=== PATIENT | male | born 1955 | race Caucasian/White ===

== ENCOUNTER 2024-09-21 10:13 | Outpatient (CLI) | payer MEDICARE, OTHER, MEDICAID ==
[~2024-09-21] VITALS: Ht 177.8 cm; Wt 111.1 kg
[2024-09-21 11:30] LABS: BASOPHILS # (AUTO) 0.1 X10'3 (0-0.2); MONOCYTES # (AUTO) 0.9 X10'3 (0-0.9)
[2024-09-21] MEDS ORDERED: FLO0.4C PO (11:30)
[2024-09-21] MEDS ORDERED: LAXATIVE PO (11:30)
[2024-09-21] MEDS ORDERED: FINA5TAB11 (11:30)
[2024-09-21] MEDS ORDERED: HYDR-3964 PO (11:30)
[2024-09-21] MEDS ORDERED: ALLERGY RELIEF PO (11:30)
[2024-09-21] MEDS ORDERED: ERGO500056 PO (11:30)
[2024-09-21] MEDS ORDERED: LOSA25TA41 PO (11:30)
[2024-09-21] MEDS ORDERED: ATOR20TA66 PO (11:30)
[2024-09-21] MEDS ORDERED: IBUP-1986 PO (11:30)
[2024-09-21] MEDS ORDERED: AMLO2.5T5 PO (11:30)
[2024-09-21] MEDS ORDERED: ASPI81TA52 PO (11:30)
[2024-09-21] MEDS ORDERED: EMPA10TA PO (11:30)
[2024-09-21 11:31] LABS: BASOPHILS % (AUTO) 1.1 % (0-1); EOSINOPHILS # (AUTO) 0.4 X10'3 (0-0.9); EOSINOPHILS % (AUTO) 3.3 % (0-6); LYMPHOCYTES # (AUTO) 3.1 X10'3 (1.1-4.8); LYMPHOCYTES % (AUTO) 27.6 % (21-51); MEAN CORPUSCULAR HEMOGLOBIN 28.2 PG (27.0-31.0); MEAN CORPUSCULAR HGB CONC 32.2 g/dL (33.0-36.5); MEAN CORPUSCULAR VOLUME 87.5 FL (78-98); MEAN PLATELET VOLUME 8.3 FL (7.4-10.4); MONOCYTES % (AUTO) 8.2 % (2-12); NEUTROPHILS # (AUTO) 6.7 X10'3 (1.8-7.7); NEUTROPHILS % (AUTO) 59.8 % (42-75); PRE OP HEMATOCRIT 51.7 % (42.0-52.0); PRE OP HEMOGLOBIN 16.7 g/dL (14.0-17.9); PRE OP PLATELET COUNT 234 X10'3 (140-440); PRE OP WHITE BLOOD COUNT 11.2 10'3 (4.8-10.8); RED BLOOD COUNT 5.91 X10'6 (4.70-6.10); RED CELL DISTRIBUTION WIDTH 14.3 % (11.5-14.5)
[2024-09-21 11:32] LABS: BILIRUBIN,URINE NEGATIVE (Neg); CLARITY,URINE CLEAR (Clear); COLOR,URINE YELLOW (Yellow); GLUCOSE, URINE >=1000 mg/dl (Neg); KETONES,URINE NEGATIVE (Neg); LEUKOCYTE ESTERASE ,URINE NEGATIVE (Neg); NITRITES, URINE NEGATIVE (Neg); OCCULT BLOOD,URINE NEGATIVE (Neg); PROTEIN,URINE NEGATIVE (Neg); UROBILINOGEN,URINE 0.2 E.U/dL (0.2-1.0)
[2024-09-21 11:36] LABS: UA COLLECTION TYPE CLN CATCH MIDSTREAM
[2024-09-21 11:38] LABS: BACTERIA,URINE NONE SEEN /HPF (Neg); MUCUS STRANDS NONE SEEN /LPF (Neg); RBC,URINE NONE SEEN /HPF (0-2); SQUAMOUS EPITHELIAL CELL,UR FEW /LPF (FEW); WBC,URINE NONE SEEN /HPF (0-4)
[2024-09-21 12:27] LABS: ALKALINE PHOSPHATASE 109 IU/L (46-116); BLOOD UREA NITROGEN 21 MG/DL (7-18); BUN/CREATININE RATIO 18.6 (10.0-20.0); CALCIUM 9.2 MG/DL (8.5-10.1); CHLORIDE 105 MMOL/L (99-107); CREATININE 1.13 MG/DL (0.60-1.10); PRE OP ALT 42 U/L (30-65); PRE OP ANION GAP 10 (8-16); PRE OP AST 19 U/L (10-37); PRE OP GLUCOSE 100 MG/DL (70-104); PRE OP POTASSIUM 4.2 MMOL/L (3.4-5.1); PRE OP SODIUM 142 MMOL/L (135-145); TOTAL CARBON DIOXIDE 27.3 MMOL/L (24-32); eGFR 64 ML/MIN
[2024-09-30] MEDS ORDERED: ceFAZolin 2gm in dextrose, iso 50 ML IV ONE (05:30)
[2024-09-30] MEDS ORDERED: ringers solution, lacted 1,000 ML IV SCH (05:30)
[2024-09-30] MEDS ORDERED: famotidine 20mg tablet PO ONE (05:30)
== END 2024-09-21 23:59 | disposition home or self-care (01) ==
LOC: LAB 10:13 → EDSTATUS 11-25 09:45
PROVIDERS: ATTEND Podiatrist Foot & Ankle Surgery
DX: Z01.818 Encounter for other preprocedural examination (principal); M79.671 Pain in right foot; M76.62 Achilles tendinitis, left leg; M21.6X2 Other acquired deformities of left foot; M79.672 Pain in left foot
CPT/HCPCS: 71046; 80053; 81001; 85025; J0690; J7120

== ENCOUNTER 2024-11-25 05:17 | Day surgery (SDC) | payer MEDICARE, MEDICAID ==
[2024-11-16 13:47] LABS: BILIRUBIN,URINE NEGATIVE (Neg); CLARITY,URINE CLEAR (Clear); COLOR,URINE YELLOW (Yellow); GLUCOSE, URINE NEGATIVE (Neg); KETONES,URINE NEGATIVE (Neg); LEUKOCYTE ESTERASE ,URINE NEGATIVE (Neg); NITRITES, URINE NEGATIVE (Neg); OCCULT BLOOD,URINE NEGATIVE (Neg); PH,URINE 5.5 (4.8-8.0); PROTEIN,URINE NEGATIVE (Neg); UROBILINOGEN,URINE 0.2 E.U/dL (0.2-1.0)
[2024-11-16 13:48] LABS: UA COLLECTION TYPE NON-SPECIFIED
[2024-11-16 13:57] LABS: BASOPHILS # (AUTO) 0.1 X10'3 (0-0.2); BASOPHILS % (AUTO) 0.7 % (0-1); EOSINOPHILS # (AUTO) 0.2 X10'3 (0-0.9); EOSINOPHILS % (AUTO) 2.3 % (0-6); LYMPHOCYTES # (AUTO) 3.1 X10'3 (1.1-4.8); LYMPHOCYTES % (AUTO) 30.4 % (21-51); MEAN CORPUSCULAR HEMOGLOBIN 28.3 PG (27.0-31.0); MEAN CORPUSCULAR HGB CONC 32.6 g/dL (33.0-36.5); MEAN PLATELET VOLUME 8.2 FL (7.4-10.4); MONOCYTES # (AUTO) 0.9 X10'3 (0-0.9); MONOCYTES % (AUTO) 9.2 % (2-12); NEUTROPHILS # (AUTO) 5.8 X10'3 (1.8-7.7); NEUTROPHILS % (AUTO) 57.4 % (42-75); PRE OP HEMATOCRIT 49.7 % (42.0-52.0); PRE OP HEMOGLOBIN 16.2 g/dL (14.0-17.9); PRE OP PLATELET COUNT 227 X10'3 (140-440); PRE OP WHITE BLOOD COUNT 10.2 10'3 (4.8-10.8); RED BLOOD COUNT 5.72 X10'6 (4.70-6.10); RED CELL DISTRIBUTION WIDTH 14.5 % (11.5-14.5)
[2024-11-16 14:19] LABS: ALBUMIN 4.1 G/DL (3.4-5.0); ALKALINE PHOSPHATASE 114 IU/L (46-116); BLOOD UREA NITROGEN 21 MG/DL (7-18); BUN/CREATININE RATIO 19.1 (10.0-20.0); CALCIUM 9.1 MG/DL (8.5-10.1); CHLORIDE 105 MMOL/L (99-107); PRE OP ALT 53 U/L (30-65); PRE OP ANION GAP 7 (8-16); PRE OP AST 21 U/L (10-37); PRE OP BILIRUB, TOTAL 1.2 MG/DL (0.0-1.0); PRE OP GLUCOSE 106 MG/DL (70-104); PRE OP POTASSIUM 4.4 MMOL/L (3.4-5.1); PRE OP SODIUM 140 MMOL/L (135-145); TOTAL CARBON DIOXIDE 28.1 MMOL/L (24-32); TOTAL PROTEIN 8.2 G/DL (6.4-8.2); eGFR 66 ML/MIN
[~2024-11-25] VITALS: Ht 177.8 cm; Wt 112.8 kg
[2024-11-25] VITALS (10 sets, daily range): BP systolic 109–142; BP diastolic 57–85; PULSE 72–84; RESP 7–17; TEMP 97.6; O2SAT 95–100
[~2024-11-25 05:17] MED LIST: ALLERGY RELIEF PO; AMLO2.5T5 PO; ASCO100031 PO; ASPI81TA52 PO; ERGO500056 PO; FINA5TAB11; FLO0.4C PO; HYDR-3964 PO; IBUP-1986 PO; LAXATIVE PO; LOSA25TA41 PO
[2024-11-25] MEDS ORDERED: famotidine 20mg tablet PO ONE (05:30)
[2024-11-25] MEDS: ceFAZolin 2gm in dextrose, iso 50 ML IV ONE (05:47)
[2024-11-25] MEDS: famotidine 20mg tablet PO ONE (05:57)
[2024-11-25] MEDS: ringers solution, lacted 1,000 ML IV SCH (05:57)
[2024-11-25] MEDS ORDERED: cloNIDine hcl/PF 100mcg/ml inj ONE (07:09)
[2024-11-25] MEDS ORDERED: fentaNYL/PF 50MCG/1 ML 2ML syringe ONE (07:13)
[2024-11-25] MEDS ORDERED: morphine 4 MG/ML inj SYRINge IV PRN (07:20)
[2024-11-25] MEDS ORDERED: labetalol 20mg/4ml (5mg/ml) syringe IV PRN (07:20)
[2024-11-25] MEDS ORDERED: acetaminophen 1,000mg/100ml IV 100 ML IV PRN (07:20)
[2024-11-25] MEDS ORDERED: morphine 2 MG/ML inj. syringe IV PRN (07:20)
[2024-11-25] MEDS ORDERED: ringers solution, lacted 1,000 ML IV SCH (07:20)
[2024-11-25] MEDS ORDERED: meperidine/PF 25mg/ml syringe IV PRN (07:20)
[2024-11-25] MEDS ORDERED: proCHLORperazine 10 MG/2 ml inj IV PRN (07:20)
[2024-11-25] MEDS ORDERED: HYDROmorphone/PF 0.2 MG/ML SYRINGE IV PRN ×2 (07:20)
[2024-11-25] MEDS ORDERED: hydrALAZINE 20mg/ml inj. IV PRN (07:20)
[2024-11-25] MEDS ORDERED: ondansetron/PF 4mg/2ml inj IV PRN (07:20)
[2024-11-25] MEDS ORDERED: sevoflurane 250ml liquid IH ONE (07:40)
[2024-11-25] MEDS ORDERED: midazolam 1 mg/ML 2ml injection ONE (08:24)
[2024-11-25] MEDS ORDERED: ondansetron/PF 4mg/2ml inj ONE (08:24)
[2024-11-25] MEDS ORDERED: dexamethasone sod phosphate 4mg/ml inj. ONE ×2 (08:24)
[2024-11-25] MEDS ORDERED: ROPIVAcaine 0.5% (5mg/ml) 30ml vial ONE (08:24)
[2024-11-25] MEDS ORDERED: LIDOcaine 2% (20mg/ml) 5ml vial ONE (08:24)
[2024-11-25] MEDS ORDERED: propofol inj 20 ML IV ONE ×2 (08:24)
[2024-11-25] MEDS: bacitracin 15gm ointment TP ONE (08:36)
[2024-11-25] MEDS: BUPIVAcaine/PF 2.5 mg/ml (0.25%) 30ml vial IJ ONE (09:12)
[2024-11-25] MEDS ORDERED: ePHEDrine 50MG/ML INJ. ONE (09:17)
== END 2024-11-25 11:05 | disposition home or self-care (01) ==
LOC: PAS 05:17
PROVIDERS: ATTEND Podiatrist Foot & Ankle Surgery
DX: M21.6X2 Other acquired deformities of left foot (principal); M76.62 Achilles tendinitis, left leg; G47.33 Obstructive sleep apnea (adult) (pediatric); I10 Essential (primary) hypertension; E11.9 Type 2 diabetes mellitus without complications; Z86.73 Personal history of transient ischemic attack (TIA), and cerebral infarction without residual deficits; E78.5 Hyperlipidemia, unspecified; E66.01 Morbid (severe) obesity due to excess calories; Z98.890 Other specified postprocedural states; Z96.651 Presence of right artificial knee joint; Z85.528 Personal history of other malignant neoplasm of kidney; Z68.36 Body mass index [BMI] 36.0-36.9, adult; M17.0 Bilateral primary osteoarthritis of knee; Z79.82 Long term (current) use of aspirin
CPT/HCPCS: 27654; 28118; 36415; 73620; 80053; 81003; 82948; 85025; A4215; A4618; A6222; A6253; A6402; A7000; C1713; J0690; J0735; J1100; J2003; J2250; J2405; J2704; J2795; J3010; J3490; J7030; J7120; Z7506; Z7508; Z7512; Z7610; A6449